=== PATIENT | female | born 1990 | race American Indian/Alaskan Native ===

== ENCOUNTER 2016-09-16 23:24 | Emergency (ER) | payer OTHER ==
[2016-09-17 00:20] LABS: Basophils % (Auto) 0.3 % (0.0-1.8); Eosinophils % (Auto) 2.8 % (0.0-4.3); Hematocrit 39.2 % (30.3-42.9); Hemoglobin 13.2 gm/dl (10.1-14.3); Mean Corpuscular HGB Conc 34 % (30-34); Mean Corpuscular Hemoglobin 32 pg (28-32); Mean Corpuscular Volume 95 fl (79-97); Platelet Count 214 K/mm3 (140-440); Red Blood Count 4.15 M/mm3 (3.65-5.03); White Blood Count 5.8 K/mm3 (4.5-11.0)
[2016-09-17 00:43] LABS: Alanine Aminotransferase 6 units/L (7-56); Albumin 4.2 g/dL (3.9-5); Albumin/Globulin Ratio 1.4 %; Alkaline Phosphatase 60 units/L (35-129); BUN/Creatinine Ratio 4.44; Bilirubin,Total < 0.2 mg/dL (0.1-1.2); Blood Urea Nitrogen 4 mg/dL (7-17); Calcium 9.1 mg/dL (8.4-10.2); Carbon Dioxide 23 mmol/L (22-30); Chloride 101.2 mmol/L (98-107); Glucose 71 mg/dL (65-100); Lipase 47 units/L (13-60); Potassium 4.5 mmol/L (3.6-5.0); Sodium 137 mmol/L (137-145); Total Protein 7.1 g/dL (6.3-8.2)
[2016-09-17 00:50] LABS: Bilirubin,Urine NEG (Negative); Blood,Urine NEG (Negative); Ketones,Urine TR mg/dL (Negative); Leukocyte Esterase,Urine SM (Negative); Mucus,Urine FEW /HPF; Nitrite,Urine NEG (Negative); Protein,Urine <15 mg/dL mg/dL (Negative); Urobilinogen,Urine < 2.0 mg/dL (<2.0)
[2016-09-17 00:52] LABS: Anion Gap 17 mmol/L
--- NOTE | 2016-09-17 11:44 | Emergency Department Report ---
HPI - General Chief Complaint: Abdominal Pain Time Seen by Provider: 09/17/16 11:24 - HPI HPI: Room 16 The patient is a 26-year-old female presenting with a chief complaint of lower abdominal pain. The patient states she has had lower abdominal/suprapubic pain for the past 2 weeks. The patient states the pain was associated with dizziness and vaginal discharge. Patient admitted to nausea denies fever. Patient describes the pain as sharp in nature. Patient denies dysuria or hematuria. The patient states she saw her primary physician 1 week ago had a pelvic exam performed. The patient states she was diagnosed with a possible "bacteria" infection and started on Flagyl and a second antibiotic which she cannot remember the name of. The patient states she took the medication as prescribed and her dizziness and vaginal discharge resolved. The patient states she still has occasional nausea and still has suprapubic pain. The patient gives her pain score of 8/10. The patient states she has an appointment to follow-up with her primary physician for her pelvic exam results tomorrow the patient states she wants to know if she is or not Location: Suprapubic Duration: [see above] Quality: Sharp Severity:8/10 Modifying factors: [see above] Context: [see above] Mode of transportation: The patient drove herself to the emergency department and there are no visitors present ED Past Medical Hx - Past Medical History Previous Medical History?: No - Surgical History Past Surgical History?: No - Family History Family history: no significant - Social History Smoking Status: Never Smoker Substance Use Type: None (denies illicit drug use), Alcohol (occasional) - Medications Home Medications: Home Medications Medication Instructions Recorded Confirmed Last Taken Type Meloxicam [Mobic] 7.5 mg PO Q12H #20 tablet 04/15/14 Unknown Rx Methocarbamol [Robaxin] 750 mg PO Q8H PRN #21 tablet 04/15/14 Unknown Rx traMADol [Ultram 50 MG tab] 50 mg PO Q6HR PRN #14 tablet 09/17/16 Unknown Rx ED Review of Systems ROS: Stated complaint: LOWER ABDOMINAL PAIN Other details as noted in HPI Comment: All other systems reviewed and negative Constitutional: denies: chills, fever Eyes: denies: eye pain, eye discharge, vision change ENT: denies: ear pain, throat pain Respiratory: denies: cough, shortness of breath, wheezing Cardiovascular: denies: chest pain, palpitations Endocrine: no symptoms reported Gastrointestinal: abdominal pain, nausea, vomiting Genitourinary: discharge. denies: dysuria, hematuria, abnormal menses Musculoskeletal: denies: back pain, joint swelling, arthralgia Skin: denies: rash, lesions Neurological: denies: headache, weakness, paresthesias Psychiatric: denies: anxiety, depression Hematological/Lymphatic: denies: easy bleeding, easy bruising Physical Exam - Physical Exam Vital Signs: Vital Signs 09/16/16 09/17/16 23:44 09:18 Temperature 98.9 F 98.9 F Pulse Rate 86 69 Respiratory 18 18 Rate Blood Pressure 111/71 Blood Pressure 114/69 [Right] O2 Sat by Pulse 100 100 Oximetry Physical Exam: GENERAL: The patient is well-developed well-nourished female lying on stretcher not appearing to be in acute distress. [] HEENT: Normocephalic. Atraumatic. Extraocular motions are intact. Patient has moist mucous membranes. NECK: Supple. Trachea midline CHEST/LUNGS: Clear to auscultation. There is no respiratory distress noted. HEART/CARDIOVASCULAR: Regular. There is no tachycardia. There is no gallop rub or murmur. ABDOMEN: Abdomen is soft, with trace suprapubic discomfort to palpation. There is no tenderness to palpation in the right lower quadrant or left lower quadrant. There is no rebound or guarding. Patient has normal bowel sounds. There is no abdominal distention. SKIN: There is no rash. There is no edema. There is no diaphoresis. NEURO: The patient is awake, alert, and oriented. The patient is cooperative. The patient has normal speech MUSCULOSKELETAL: There is no tenderness or deformity. There is no limitation range of motion. There is no evidence of acute injury. PELVIC: Deferred by patient ED Course Vital Signs 09/16/16 09/17/16 23:44 09:18 Temperature 98.9 F 98.9 F Pulse Rate 86 69 Respiratory 18 18 Rate Blood Pressure 111/71 Blood Pressure 114/69 [Right] O2 Sat by Pulse 100 100 Oximetry ED Medical Decision Making - Lab Data Result diagrams: 09/17/16 00:10 09/17/16 00:10 Laboratory Tests 09/17/16 09/17/16 09/17/16 00:10 00:10 00:26 WBC 5.8 RBC 4.15 Hgb 13.2 Hct 39.2 MCV 95 MCH 32 MCHC 34 RDW 13.0 L Plt Count 214 Lymph % (Auto) 54.4 H [place] % (Auto) 7.4 H Eos % (Auto) 2.8 Baso % (Auto) 0.3 Lymph # 3.2 [place] # 0.4 Eos # 0.2 Baso # 0.0 Seg Neutrophils % 35.1 L Seg Neutrophils # 2.0 Sodium 137 Potassium 4.5 Chloride 101.2 Carbon Dioxide 23 Anion Gap 17 BUN 4 L Creatinine 0.9 Estimated GFR > 60 BUN/Creatinine Ratio 4.44 Glucose 71 Calcium 9.1 Total Bilirubin < 0.2 AST 29 ALT 6 L Alkaline Phosphatase 60 Total Protein 7.1 Albumin 4.2 Albumin/Globulin Ratio 1.4 Lipase 47 Urine Color Yellow Urine Turbidity Clear Urine pH 6.0 Ur Specific [place] 1.018 Urine Protein <15 mg/dl Urine Glucose (UA) Neg Urine Ketones Tr Urine Blood Neg Urine Nitrite Neg Urine Bilirubin Neg Urine Urobilinogen < 2.0 Ur Leukocyte Esterase Sm Urine WBC (Auto) 5.0 Urine RBC (Auto) 1.0 U Epithel Cells (Auto) 1.0 Urine Mucus Few Urine HCG, Qual 09/17/16 11:25 WBC RBC Hgb Hct MCV MCH MCHC RDW Plt Count Lymph % (Auto) [place] % (Auto) Eos % (Auto) Baso % (Auto) Lymph # [place] # Eos # Baso # Seg Neutrophils % Seg Neutrophils # Sodium Potassium Chloride Carbon Dioxide Anion Gap BUN Creatinine Estimated GFR BUN/Creatinine Ratio Glucose Calcium Total Bilirubin AST ALT Alkaline Phosphatase Total Protein Albumin Albumin/Globulin Ratio Lipase Urine Color Urine Turbidity Urine pH Ur Specific [place] Urine Protein Urine Glucose (UA) Urine Ketones Urine Blood Urine Nitrite Urine Bilirubin Urine Urobilinogen Ur Leukocyte Esterase Urine WBC (Auto) Urine RBC (Auto) U Epithel Cells (Auto) Urine Mucus Urine HCG, Qual Negative - Differential Diagnosis bacterial vaginosis, gonorrhea chlamydia, yeast infection, Critical care attestation.: If time is entered above; I have spent that time in minutes in the direct care of this critically ill patient, excluding procedure time. ED Disposition Clinical Impression: Suprapubic abdominal pain Disposition: DISCHARGED TO HOME OR SELFCARE Is pt being admited?: No Does the pt Need Aspirin: No Condition: Stable Instructions: Abdominal Pain (ED) Additional Instructions: Return to the emergency department immediately should you develop worsening symptoms, fever, inability to tolerate food or liquid or any other concerns. Prescriptions: traMADol [Ultram 50 MG tab] 50 mg PO Q6HR PRN #14 tablet PRN Reason: Pain Referrals: PRIMARY CARE, [Primary Care Provider] - 09/18/16 Time of Disposition: 11:49
[2016-09-17] MEDS ORDERED: TYLENOL PO ONE (11:48)
[2016-09-17 11:57] VITALS: BP 110/72
== END 2016-09-17 11:58 | disposition home or self-care (01) ==
LOC: ED 23:24
DX: R10.30 Lower abdominal pain, unspecified (principal); N89.8 Other specified noninflammatory disorders of vagina; R42 Dizziness and giddiness; R11.2 Nausea with vomiting, unspecified
CPT/HCPCS: 36415; 80053; 81001; 81025; 83690; 85025; 99283